=== PATIENT | female | born 1990 | race Caucasian/White ===

== ENCOUNTER 2017-12-12 20:28 | Emergency (ER) | payer OTHER ==
[~2017-12-12] VITALS: Ht 152.4 cm; Wt 54.4 kg
[2017-12-12] MEDS ORDERED: KEFLEX500 M1 PO (20:51)
[2017-12-12 21:06] VITALS: BP 122/77
== END 2017-12-12 21:09 | disposition home or self-care (01) ==
LOC: M.ERS 20:28
DX: L02.213 Cutaneous abscess of chest wall (principal); Z88.6 Allergy status to analgesic agent

== ENCOUNTER 2018-12-17 00:37 | Emergency (ER) | payer OTHER ==
[~2018-12-17] VITALS: Ht 152.4 cm; Wt 52.2 kg
[~2018-12-17 00:37] MED LIST: KEFLEX500 M1 PO
[2018-12-17 00:50] VITALS: BP 123/80
[2018-12-17] MEDS ORDERED: BACTRIM DS TAB1 EACH PO (00:52)
== END 2018-12-17 00:50 | disposition home or self-care (01) ==
LOC: M.ERS 00:37
DX: L98.8 Other specified disorders of the skin and subcutaneous tissue (principal); F17.200 Nicotine dependence, unspecified, uncomplicated; Z88.6 Allergy status to analgesic agent